=== PATIENT | female | born 1975 | race Hispanic/Latino ===

== ENCOUNTER 2019-11-13 07:42 | Emergency (ER) | payer SELFPAY ==
[2019-11-13] MEDS ORDERED: MORPHINE 4 MG/1 ML INJ IV ONE (09:11)
[2019-11-13] MEDS ORDERED: ONDANSETRON 4 MG/2 ML INJ IV ONE (09:11)
--- NOTE | 2019-11-13 09:52 | Emergency Department Report ---
ED General Adult HPI - General Chief complaint: Pain General Stated complaint: LOWER/ABD/BACK PAIN Time Seen by Provider: 11/13/19 08:26 Source: patient Mode of arrival: Wheelchair Limitations: No Limitations - History of Present Illness Initial comments: The patient presents to the emergency department with a chief complaint of right upper quadrant abdominal pain that started this morning. Patient states she has a history of gallstones which were diagnosed approximately 3 years ago. Patient states last night she ate tacos with cheese. Patient describes the pain as 8 out of 10 and states it radiates into her right shoulder blade. Patient compl ains of some nausea but denies vomiting. -: Sudden Location: abdomen Radiation: other (right scapula) Severity scale (0 -10): 8 Quality: sharp Consistency: constant Improves with: none Worsens with: none Associated Symptoms: denies other symptoms - Related Data Previous Rx's Medication Instructions Recorded Last Taken Type Butalbit/Acetamin/Caff/Codeine 1 each PO Q6H PRN #12 capsule 05/06/15 Unknown Rx [Fioricet-Cod 64-260-58-30 Cap] Ibuprofen [Motrin 400 MG tab] 400 mg PO Q8H PRN #20 tablet 05/06/15 Unknown Rx Acetaminophen/Codeine [Tylenol #3] 1 tab PO Q6H PRN #15 tab 03/07/16 Unknown Rx methOCARBAMOL [Robaxin TAB] 500 mg PO BID #20 tab 03/07/16 Unknown Rx Acetaminophen/Codeine [Tylenol 1 tab PO Q6H PRN #15 tab 11/13/19 Unknown Rx /Codeine # 3 tab] Ondansetron [Zofran Odt] 4 mg PO Q4HR PRN #20 tab.rapdis 11/13/19 Unknown Rx Promethazine [Phenergan TAB] 25 mg PO Q6HR PRN #20 tab 11/13/19 Unknown Rx Allergies Allergy/AdvReac Type Severity Reaction Status Date / Time No Known Allergies Allergy Unverified 05/06/15 15:08 ED Review of Systems ROS: Stated complaint: LOWER/ABD/BACK PAIN Other details as noted in HPI Comment: All other systems reviewed and negative Constitutional: denies: chills, fever Eyes: denies: eye pain, eye discharge, vision change ENT: denies: ear pain, throat pain Respiratory: denies: cough, shortness of breath, wheezing Cardiovascular: denies: chest pain, palpitations Endocrine: no symptoms reported Gastrointestinal: abdominal pain. denies: nausea, diarrhea Genitourinary: denies: urgency, dysuria, discharge Musculoskeletal: denies: back pain, joint swelling, arthralgia Skin: denies: rash, lesions Neurological: denies: headache, weakness, paresthesias Psychiatric: denies: anxiety, depression Hematological/Lymphatic: denies: easy bleeding, easy bruising ED Past Medical Hx - Past Medical History Previous Medical History?: Yes Hx of Cancer: Yes (Cervical) Hx COPD: Yes Additional medical history: Right collapsed lung - Surgical History Past Surgical History?: Yes Additional Surgical History: Hysterectomy - Social History Smoking Status: Current Every Day Smoker Substance Use Type: Alcohol - Medications Home Medications: Home Medications Medication Instructions Recorded Confirmed Last Taken Type Butalbit/Acetamin/Caff/Codeine 1 each PO Q6H PRN #12 capsule 05/06/15 Unknown Rx [Fioricet-Cod 34-035-61-30 Cap] Ibuprofen [Motrin 400 MG tab] 400 mg PO Q8H PRN #20 tablet 05/06/15 Unknown Rx Acetaminophen/Codeine [Tylenol #3] 1 tab PO Q6H PRN #15 tab 03/07/16 Unknown Rx methOCARBAMOL [Robaxin TAB] 500 mg PO BID #20 tab 03/07/16 Unknown Rx Acetaminophen/Codeine [Tylenol 1 tab PO Q6H PRN #15 tab 11/13/19 Unknown Rx /Codeine # 3 tab] Ondansetron [Zofran Odt] 4 mg PO Q4HR PRN #20 tab.rapdis 11/13/19 Unknown Rx Promethazine [Phenergan TAB] 25 mg PO Q6HR PRN #20 tab 11/13/19 Unknown Rx ED Physical Exam - General Limitations: No Limitations General appearance: alert, in no apparent distress - Head Head exam: Present: atraumatic, normocephalic - Eye Eye exam: Present: normal appearance, PERRL, EOMI - ENT ENT exam: Present: mucous membranes moist - Neck Neck exam: Present: normal inspection - Respiratory Respiratory exam: Present: normal lung sounds bilaterally. Absent: respiratory distress - Cardiovascular Cardiovascular Exam: Present: regular rate, normal rhythm. Absent: systolic murmur, diastolic murmur, rubs, gallop - GI/Abdominal GI/Abdominal exam: Present: soft, normal bowel sounds - Extremities Exam Extremities exam: Present: normal inspection - Back Exam Back exam: Present: normal inspection - Neurological Exam Neurological exam: Present: alert, oriented X3, CN II-XII intact. Absent: motor sensory deficit - Psychiatric Psychiatric exam: Present: normal affect, normal mood - Skin Skin exam: Present: warm, dry, intact, normal color. Absent: rash ED Course Vital Signs 11/13/19 11/13/19 11/13/19 07:45 08:15 08:22 Temperature 97.9 F 97.8 F Pulse Rate 109 H 83 82 Respiratory 20 13 Rate Blood Pressure 128/76 Blood Pressure 117/77 [Left] O2 Sat by Pulse 98 100 Oximetry 11/13/19 11/13/19 08:30 10:31 Temperature Pulse Rate 78 Respiratory 22 22 Rate Blood Pressure 120/83 Blood Pressure [Left] O2 Sat by Pulse Oximetry ED Medical Decision Making - Lab Data Result diagrams: 11/13/19 09:23 11/13/19 09:23 Lab Results 11/13/19 11/13/19 Range/Units 09:23 09:23 WBC 9.3 (4.5-11.0) K/mm3 RBC 4.02 (3.65-5.03) M/mm3 Hgb 12.3 (10.1-14.3) gm/dl Hct 36.5 (30.3-42.9) % MCV 91 (79-97) fl MCH 31 (28-32) pg MCHC 34 (30-34) % RDW 13.0 L (13.2-15.2) % Plt Count 219 (140-440) K/mm3 Lymph % (Auto) 38.3 H (13.4-35.0) % [place] % (Auto) 4.9 (0.0-7.3) % Eos % (Auto) 1.2 (0.0-4.3) % Baso % (Auto) 1.0 (0.0-1.8) % Lymph # 3.5 (1.2-5.4) K/mm3 [place] # 0.5 (0.0-0.8) K/mm3 Eos # 0.1 (0.0-0.4) K/mm3 Baso # 0.1 (0.0-0.1) K/mm3 Seg Neutrophils % 54.6 (40.0-70.0) % Seg Neutrophils # 5.1 (1.8-7.7) K/mm3 Sodium 144 (137-145) mmol/L Potassium 3.7 (3.6-5.0) mmol/L Chloride 106.6 (98-107) mmol/L Carbon Dioxide 19 L (22-30) mmol/L Anion Gap 22 mmol/L BUN 9 (7-17) mg/dL Creatinine 0.5 L (0.7-1.2) mg/dL Estimated GFR > 60 ml/min BUN/Creatinine Ratio 18 % Glucose 97 (65-100) mg/dL Calcium 8.9 (8.4-10.2) mg/dL Total Bilirubin < 0.20 (0.1-1.2) mg/dL AST 21 (5-40) units/L ALT 17 (7-56) units/L Alkaline Phosphatase 61 (35-129) units/L Total Protein 6.6 (6.3-8.2) g/dL Albumin 4.0 (3.9-5) g/dL Albumin/Globulin Ratio 1.5 % Lipase 51 (13-60) units/L - Radiology Data Radiology results: report reviewed - Medical Decision Making Findings discussed with the patient including the finding of a renal cyst that she should have follow-up by primary care physician Critical care attestation.: If time is entered above; I have spent that time in minutes in the direct care of this critically ill patient, excluding procedure time. ED Disposition Clinical Impression: Cholelithiasis, Biliary colic, Renal cyst Disposition: TO HOME OR SELFCARE Is pt being admited?: No Does the pt Need Aspirin: No Condition: Stable Instructions: Biliary Colic (ED) Additional Instructions: Please follow up with surgeon as discussed as well as a PCP Referrals: PRIMARY CARE, [Primary Care Provider] - 3-5 Days JEAN KONG DO [Staff Physician] - 3-5 Days NICOLASA ROBERTS MD [Staff Physician] - 3-5 Days Time of Disposition: 11:05
[2019-11-13 09:57] LABS: Basophils # (Auto) 0.1 K/mm3 (0.0-0.1); Eosinophils # (Auto) 0.1 K/mm3 (0.0-0.4); Eosinophils % (Auto) 1.2 % (0.0-4.3); Hematocrit 36.5 % (30.3-42.9); Hemoglobin 12.3 gm/dl (10.1-14.3); Lymphocytes # (Auto) 3.5 K/mm3 (1.2-5.4); Lymphocytes % (Auto) 38.3 % (13.4-35.0); Mean Corpuscular HGB Conc 34 % (30-34); Mean Corpuscular Volume 91 fl (79-97); Monocytes # (Auto) 0.5 K/mm3 (0.0-0.8); Monocytes % (Auto) 4.9 % (0.0-7.3); Platelet Count 219 K/mm3 (140-440); Red Blood Count 4.02 M/mm3 (3.65-5.03)
[2019-11-13 10:19] LABS: Alanine Aminotransferase 17 units/L (7-56); BUN/Creatinine Ratio 18; Blood Urea Nitrogen 9 mg/dL (7-17); Calcium 8.9 mg/dL (8.4-10.2); Hemolysis Index 4
--- NOTE | 2019-11-13 10:57 | Ultrasound Report ---
LIMITED RUQ ABDOMINAL ULTRASOUND INDICATION: ruq. COMPARISON: No relevant prior imaging study available. FINDINGS: Pancreas: Visualized portions show no significant abnormality. Abdominal Aorta: No significant abnormality. IVC: No significant abnormality. Liver: Normal. Gallbladder: Sludge is identified within the gallbladder.. Sonographic Bruce's sign: Not performed. Bile ducts: No intrahepatic bile duct dilatation. A linear area of increased echogenicity is identifi ed in the common bile duct. There is no associated acoustical shadowing as would be expected if this represented a stone.. Common bile duct measures 4 mm. Free fluid: None. Additional Findings: 1.4 cm right renal cyst. IMPRESSION: 1. Gallbladder sludge. 2. Echogenicity within the common bile duct may represent sludge, it does not have characteristics co nsistent with calculus. Signer Name: Johnie Bueno MD Signed: 11/13/2019 10:53 AM Workstation Name: [id number]
[2019-11-13] MEDS ORDERED: ONDANSETRON 4 MG ODT TAB PO ONE (11:02)
[2019-11-13] MEDS ORDERED: HYDROcodone/ACETAMINOPHEN 10-325MG TAB PO ONE (11:02)
[2019-11-13 11:12] VITALS: BP 99/57
== END 2019-11-13 11:42 | disposition home or self-care (01) ==
LOC: ED 07:42
DX: K80.20 Calculus of gallbladder without cholecystitis without obstruction (principal); K80.50 Calculus of bile duct without cholangitis or cholecystitis without obstruction; N28.1 Cyst of kidney, acquired; J44.9 Chronic obstructive pulmonary disease, unspecified; F17.200 Nicotine dependence, unspecified, uncomplicated; Z90.710 Acquired absence of both cervix and uterus
CPT/HCPCS: 36415; 76705; 80053; 83690; 85025; 96374; 96375; 99284; J2270; J2405; Q0162